=== PATIENT | female | born 1985 | race Caucasian/White ===

== ENCOUNTER 2016-08-01 00:45 | Emergency (ER) | payer OTHER ==
--- NOTE | 2016-08-01 00:58 | NUR ---
LEFT IN THE MIDDLE OF TRIAGE.
== END 2016-08-01 00:59 | disposition left against medical advice (07) ==
LOC: ER 00:45
DX: Z53.21 Procedure and treatment not carried out due to patient leaving prior to being seen by health care provider (principal)